=== PATIENT | male | born 1975 | race Two or more races ===

== ENCOUNTER 2017-05-10 23:09 | Emergency (ER) | payer OTHER ==
[~2017-05-10] VITALS: Ht 165.1 cm; Wt 68.0 kg
--- NOTE | 2017-05-10 23:19 | NUR ---
41 YO MALE BB RA FROM CUSTODY. PER EMS, PT PUT A PLASTIC GLOVE OF UNKNOWN SUBSTANCE IN HIS ANAL CAVITY, PT AMBULATED TO ER BED, SKIN WARM AND DRY, RR EVEN AND UNLABORED. PT GOWNED, PLACED ON [employer]. AWAITING ORDERS FROM PROVIDER
--- NOTE | 2017-05-10 23:21 | NUR ---
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
--- NOTE | 2017-05-10 23:30 | NUR ---
PATIENT IS REFUSING MEDICAL EXAM BY
[2017-05-11 01:41] VITALS: BP 136/90
--- NOTE | 2017-05-11 01:42 | NUR ---
Patient discharged to home in stable condition. Written and verbal after care instructions given. Patient verbalizes understanding of instruction.
== END 2017-05-11 01:41 ==
LOC: ER 23:11
DX: R10.9 Unspecified abdominal pain (principal); K57.90 Diverticulosis of intestine, part unspecified, without perforation or abscess without bleeding; K42.9 Umbilical hernia without obstruction or gangrene
CPT/HCPCS: 74176; 99284; A4606; Z7610